=== PATIENT | male | born 1985 | race Caucasian/White ===

== ENCOUNTER 2017-06-15 12:37 | Emergency (ER) | payer OTHER ==
[~2017-06-15] VITALS: Ht 175.3 cm; Wt 74.8 kg
[2017-06-15 12:44] VITALS: Ht 175.3 cm; Wt 74.8 kg
[2017-06-15 13:04] VITALS: BP 142/66
== END 2017-06-15 13:04 | disposition left against medical advice (07) ==
LOC: ED 12:37
DX: Z53.21 Procedure and treatment not carried out due to patient leaving prior to being seen by health care provider (principal)